=== PATIENT | female | born 1965 | race Two or more races ===

== ENCOUNTER 2024-01-17 05:35 | Emergency (ER) | payer MEDICAID ==
[~2024-01-17] VITALS: Ht 167.6 cm; Wt 73.3 kg
[~2024-01-17 05:35] MED LIST: ARIP1SOL; BENZ0.5T6; ESCI20TA PO
[2024-01-17 05:50] VITALS: BP 121/77; PULSE 65; RESP 18; O2SAT 97
--- NOTE | 2024-01-17 06:46 | ED.PDOC ---
Musculoskeletal HPI Comments Portions of this chart may have been created with an modal fluency direct voice recognition software. Occasional wrong-word or "sound-alike" substitutions may have occurred due to the inherent limitations of voice recognition software. Please read the chart carefully and recognize, using context, where these substitutions have occurred. This is a pleasant 58-year-old female that presents with a chief complaint of atraumatic acute pain to the right deltoid for 2 hours. States she received a injection to eight years ago and symptoms started suddenly. Denies chest pain shortness of breath. Wells score negative Chief Complaint: Upper Extremity Time Seen by MD: 06:26 Primary Care Provider: NONE Reviewed Notes: Nurses Notes, Medications, Allergies Allergies: Coded Allergies: Haloperidol (Verified Allergy, Mild, 03/06/10) Home Meds Reported Medications Escitalopram Oxalate (Lexapro) 20 Mg Tab, 20 MG PO OD 03/06/12 Benztropine Mesylate (Cogentin) 0.5 Mg Tb 03/06/10 Aripiprazole (Abilify) 1 Mg/Ml Shanda 03/06/10 Information Source: Patient Mode of Arrival: Ambulatory Past Medical History PAST MEDICAL HISTORY: Depression, Schizophrenia Surgical History: Denies all surgeries CONTINUING EDUCATION SPECIALIST History: No Pertinent CONTINUING EDUCATION SPECIALIST History Family History Family History: No family hx of Heart maxim, No family hx of Stroke Social History Smoker: Less Than 1 Pack/Day Alcohol: Occasionally Drugs: Denies Drug Use Lives In: Home All Other Systems: Reviewed and Negative (Per HPI) Physical Exam General Appearance: No Apparent Distress, Normal HEENT: Normal ENT Inspection, Pharynx Normal, TMs Normal Neck: Full Range of Motion, Non-Tender, Normal, Normal Inspection Respiratory: Chest Non-Tender, Lungs Clear, No Accessory Muscle Use, No Respiratory Distress, Normal Breath Sounds Cardiovascular: No Edema, No JVD, No Murmur, No Gallop, Normal Peripheral Pulses, Regular Rate/Rhythm Breast Exam: Deferred Gastrointestinal: No Organomegaly, Non Tender, No Pulsatile Mass, Normal Bowel Sounds, Soft Genitalia: Deferred Pelvic: Deferred Rectal: Deferred Extremities: No calf tenderness, Normal capillary refill, Normal inspection, Normal range of motion, Non-tender, No pedal edema Musculoskeletal : Apperance: Normal Neurologic: Alert, 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 Was a procedure done?: No Differential Diagnosis EXT Differential Diagnosis: Other X-Ray, Labs, Meds, VS Vital Signs Date Time Temp Pulse Resp B/P (MAP) Pulse Ox O2 Delivery O2 Flow Rate FiO2 01/17/24 05:50 99.5 65 18 121/77 (92) 97 X-Ray, Labs, Meds, VS Comment This patient has elected to leave against medical advice. In my opinion, the patient has capacity to leave AMA. The patient is clinically sober, free from distracting injury, appears to have intact insight, judgment, and reason; therefore, the patient has the capacity to make decisions. I explained to the patient that these symptoms may represent a serious underlying medical condition and the patient verbalized understanding of my concerns and understands the consequences of leaving without complete evaluation. I had a discussion with the patient about their workup and results, and informed the patient what the next step in diagnosis and treatment would be, and they verbalized understanding of this as well. I explained the risks of leaving without further workup or treatment, which included reasonably foreseeable complications such as , serious injury, prolonged illness, and permanent disability. I discussed the specific benefits of additional treatment and also offered alternatives to departing AMA, such as assigning the patient a different provider or an alternate workup pathway. However, the patient declined and insisted on leaving against medical advice. I answered all of the patient's questions about their condition and I asked them to follow up with their PCP as soon as possible or return to this ER for further evaluation whenever they choose. Patient voiced understanding. Time of 1ST Reevaluation: 06:30 Reevaluation 1ST: Improved Patient Education/Counseling: Diagnosis, Treatment Family Education/Counseling: Diagnosis, Treatment Departure 1 Departure Time of Disposition: 07:03 Impression: Primary Impression: Left against medical advice Disposition: 07 LEFT AGAINST MEDICAL ADVICE Condition: Fair Critical Care Note Critical Care Time?: No Stability Stability form required: No Heart Score Heart Score: Heart Score Response (Comments) Value History N/A 0 EKG N/A 0 Age N/A 0 Risk Factors N/A 0 Troponin N/A 0 Total 0 SUZIE STERLING [employer] WORKER Jan 17, 2024 06:46
== END 2024-01-17 06:47 | disposition left against medical advice (07) ==
LOC: ER 05:35
DX: M25.511 Pain in right shoulder (principal); Z53.29 Procedure and treatment not carried out because of patient's decision for other reasons; Z79.899 Other long term (current) drug therapy; Z88.8 Allergy status to other drugs, medicaments and biological substances